=== PATIENT | male | born 1985 | race Caucasian/White ===

== ENCOUNTER 2017-01-05 11:12 | Emergency (ER) ==
[2017-01-05] MEDS ORDERED: NORCO 5-325 PO STA (11:22)
[2017-01-05 11:24] VITALS: BP 125/67; TEMP 100.5; BMI 27.8
[2017-01-05] MEDS ORDERED: ROCEPHIN IM STA (11:27)
[2017-01-05] MEDS ORDERED: LIDOCAINE 1 % AMP 5 ML (SUTURES) IM STA (11:27)
--- NOTE | 2017-01-05 11:27 | ED.PDOC ---
General ED Provider: Dr. KATIE SANCHEZ JR Chief Complaint: Sore Throat Stated Complaint: SEVERE SORE THROAT [ since last night 100.5 20 96% 125/67 8/ 10 pain fever hoarse difficulty with secretions, took rocephin and ibuprofen( brought in by ) but sweating all night Time Seen by Physician: 11:21 Mode of Arrival: Walk-In Information Source: Patient, Family Exam Limitations: No limitations Nursing and Triage Documentation Reviewed and Agree: No Review of Systems - Review Of Systems Constitutional: Reports: Fever, Malaise, Weakness Eyes: Reports: No symptoms Ears, Nose, Mouth, Throat: Reports: Throat pain, Throat swelling Respiratory: Reports: Cough Cardiac: Reports: No symptoms GI: Reports: No symptoms : Reports: No symptoms Musculoskeletal: Reports: Muscle pain Skin: Reports: No symptoms Neurological: Reports: No symptoms Endocrine: Reports: No symptoms Hematologic/Lymphatic: Reports: Swollen glands All Other Systems: Other Past Medical History - Past Medical History Previously Healthy: Yes Endocrine: Reports: None Cardiovascular: Reports: None Respiratory: Reports: None Hematological: Reports: None Gastrointestinal: Reports: None Genitourinary: Reports: None Neuro/Psych: Reports: None Musculoskeletal: Reports: None Cancer: Reports: None - Surgical History General Surgical History: Reports: None - Family History Family History: Reports: None (no one else ill at in [place] yesterday) - Social History Smoking Status: Never smoker Hx Substance Use: No Alcohol Screening: Occasionally - Immunizations Tetanus Shot up to Date: Yes Physical Exam - Physical Exam Appearance: Ill-appearing Pain Distress: Moderate Eyes: DARINEL, EOMI, Conjunctiva clear ENT: Erythema, Exudate Respiratory: Airway patent, Breath sounds clear, Breath sounds equal, Respirations nonlabored Cardiovascular: RRR, Pulses normal, No rub, No murmur GI/: Soft, Nontender, No masses, Bowel sounds normal, No Organomegaly Musculoskeletal: Normal strength, ROM intact, No edema, No calf tenderness Skin: Warm, Dry, Normal color Neurological: Sensation intact, Motor intact, Reflexes intact, Cranial nerves intact, Alert, Oriented Psychiatric: Affect appropriate, Mood appropriate Critical Care Note - Critical Care Note Total Time (mins): 0 Course - Course Orders, Labs, Meds: Orders Category Date Time Status STREP SCREEN Stat LAB 01/05/17 11:20 Uncollected Vital Signs: Temp Pulse Resp BP Pulse Ox 01/05/17 11:13 100.5 F H 105 H 20 125/67 96 Departure - Departure Time of Disposition: 11:32 Disposition: HOME SELF-CARE Discharge Problem: Pharyngitis Instructions: Pharyngitis (ED) Condition: Fair Pt referred to PMD for follow-up: Yes Additional Instructions: avoid sharing food or drink avoid close contacts until on antibiotic for 24 hours may try chloraseptic spray for sore throat may finish 10 days of Keflex four times a day or if not resolving may switch to clindamycin 300mg four times a day continue ibuprofen for discomfort may begin medrol dosepack for swelling may use Naprosyn instead of not with ibuprofen plenty of rest plenty of fluids- may avoid solid food until throat improved Prescriptions: Naproxen [Naprosyn] 500 mg PO Q12HR PRN #30 tablet PRN Reason: PAIN Clindamycin HCl 300 mg PO QID #40 capsule Methylprednisolone [Medrol Dosepak] 4 mg PO DIRECTED #1 pkg Allergies/Adverse Reactions: Allergies No Known Allergies Allergy (Unverified 01/05/17 11:18) Home Medications: Ambulatory Orders Clindamycin HCl 300 mg PO QID #40 capsule 01/05/17 Methylprednisolone [Medrol Dosepak] 4 mg PO DIRECTED #1 pkg 01/05/17 Naproxen [Naprosyn] 500 mg PO Q12HR PRN #30 tablet 01/05/17
== END 2017-01-05 11:53 | disposition home or self-care (01) ==
LOC: ED 11:12
DX: J02.9 Acute pharyngitis, unspecified (principal)
CPT/HCPCS: 87651; 87880; 96372; 99282